=== PATIENT | male | born 1975 | race Caucasian/White ===

== ENCOUNTER → 2018-11-24 | Outpatient (CLI) | payer SELFPAY ==
--- NOTE | 2018-11-24 13:27 | REP ---
CT orbits without contrast History: Foreign body right eye The globes , optic nerves and rectus muscles are normal in appearance. There is no orbital lesion. The visualized sinuses are clear. There is no radiopaque foreign body. Impression: There is no radiopaque foreign body. Electronically Signed by Nelson Harris MD 11/24/2018 01:18 P
== END ==
LOC: M RAD 12:48
PROVIDERS: ATTEND Ophthalmology
DX: H53.8 Other visual disturbances (principal)

== ENCOUNTER 2018-11-27 06:23 | Day surgery (SDC) | payer SELFPAY ==
[~2018-11-27] VITALS: Ht 174 cm; Wt 83.5 kg
[~2018-11-27 06:23] MED LIST: ACETAMINOPHEN 325 MG TAB PO PRN
[2018-11-27] MEDS ORDERED: POVIDONE-IODINE 5% OPHTH PREP SOL 30ML As Ordered ONE (06:39)
[2018-11-27] MEDS ORDERED: BALANCED SALT IRRIGATION SOLUTION 500ML BAG (FOR OR EYE MACHINE) As Ordered ONE (06:39)
[2018-11-27] MEDS ORDERED: LIDOCAINE 1% SDV 5 ML VIAL As Ordered ONE (06:39)
[2018-11-27] MEDS ORDERED: HEALON DUET PRO(HEALON 10MG/ML 0.55ML & HEALON ENDOCOAT 30MG/ML 0.85ML) As Ordered ONE (06:40)
[2018-11-27] MEDS ORDERED: CEFUROXIME 1MG/0.1ML INTRACAMERAL INJ As Ordered ONE (06:40)
[2018-11-27] MEDS ORDERED: PHENYLEPHRINE HCL 10 % OPHTH. SOL 5ML OD PRN (07:00)
[2018-11-27] MEDS ORDERED: CYCLOPENTOLATE 2% OPHTH SOLN 2ML BTL OD ONE (07:00)
[2018-11-27] MEDS ORDERED: PHENYLEPHRINE 2.5% OPHTH SOL 2ML OD ONE (07:00)
[2018-11-27] MEDS ORDERED: TROPICAMIDE 1% OPHTH SOLN 2ML OD ONE (07:00)
[2018-11-27] MEDS ORDERED: LIDOCAINE 3.5 % 1ML OPHTH TOPICAL GEL OU ONE (07:00)
[2018-11-27] MEDS ORDERED: OFLOXACIN 0.3 % (OCUFLOX) OPTH SOL 5ML OD ONE (07:00)
[2018-11-27] MEDS ORDERED: PROPARACAINE 0.5% OPHTH SOL 15ML OD PRN (07:01)
[2018-11-27] MEDS ORDERED: MIDAZOLAM INJ 2 MG/2 ML VIAL (J2250) As Ordered ONE (07:15)
[2018-11-27] MEDS ORDERED: fentaNYL 100 MCG/2 ML INJECTION (J3010) As Ordered ONE (07:15)
[2018-11-27] MEDS ORDERED: TETRACAINE 0.5% OPHTH SOLN 4ML As Ordered ONE (07:34)
[2018-11-27] MEDS ORDERED: PROPOFOL 200 MG/20 ML VIAL As Ordered ONE (07:35)
[2018-11-27] MEDS ORDERED: ACETYLCHOLINE OPHTH SOLN 1% 2ML (MIOCHOL-E) As Ordered ONE (07:47)
[2018-11-27] MEDS ORDERED: TOBRADEX OPHTH OINT 3.5 GM As Ordered ONE (07:52)
[2018-11-27] MEDS ORDERED: KETOROLAC 0.5% OPHTH SOLN OD ONE (09:00)
[2018-11-27] MEDS ORDERED: TRIMETHOBENZAMIDE 300 MG CAP PO PRN (09:00)
[2018-11-27] MEDS ORDERED: AcetaZOLAMIDE 500 MG ER CAP PO ONE (09:00)
[2018-11-27 09:05] VITALS: BP 105/69
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
== END 2018-11-27 09:23 | disposition home or self-care (01) ==
LOC: M SDC 06:23
PROVIDERS: ATTEND Ophthalmology
DX: H26.101 Unspecified traumatic cataract, right eye (principal)
CPT/HCPCS: 66984; J2250; J3010